=== PATIENT | male | born 1960 | race African-American/Black ===

== ENCOUNTER → 2017-10-05 | Outpatient (CLI) | payer BC ==
--- NOTE | 2017-10-05 15:26 | RADIOLOGY REPORT (SQ) ---
EXAM DESCRIPTION: U/S RETROPERITON (RENAL/AORTA) COMPLETED DATE/TIME: 10/05/2017 2:56 pm REASON FOR STUDY: CKD (N18.9) N18.9 CHRONIC KIDNEY DISEASE, UNSPECIFIED COMPARISON: None. TECHNIQUE: Dynamic and static grayscale images acquired of the kidneys and bladder and recorded on P ACS. Additional selected color Doppler and spectral images recorded. LIMITATIONS: None. FINDINGS: RIGHT KIDNEY: Right nephrectomy in 2005. No mass in the right renal fossa. LEFT KIDNEY: Normal size, 12.4 cm. Normal echogenicity. No solid or suspicious masses. No hydronephr osis. No calcifications. BLADDER: Urinary bladder is normal. OTHER FINDINGS: No other significant finding. IMPRESSION: NORMAL RENAL AND BLADDER ULTRASOUND. TECHNICAL DOCUMENTATION: JOB ID: [id number] [email or web address]- All Rights Reserved Reading location - IP/workstation name: [email or web address]
== END ==
LOC: RAD 14:07
PROVIDERS: ATTEND Family Medicine
DX: N18.9 Chronic kidney disease, unspecified (principal)
CPT/HCPCS: 76770

== ENCOUNTER → 2017-11-17 | Outpatient (CLI) | payer BC ==
[2017-11-18 09:55] LABS: PROSTATE SPECIFIC ANTIGEN 1.3 ng/mL (0.0-4.0); PSA % FREE 29.2 % (.); PSA FREE 0.38 ng/mL
== END ==
LOC: OD 09:59
PROVIDERS: ATTEND Urology
DX: R97.20 Elevated prostate specific antigen [PSA] (principal)
CPT/HCPCS: 36415; 84154

== ENCOUNTER → 2017-12-11 | Outpatient (CLI) | payer BC ==
[2017-12-11 16:51] LABS: APPEARANCE,URINE CLEAR; BILIRUBIN,URINE NEGATIVE (NEGATIVE); COLOR,URINE YELLOW; GLUCOSE, URINE NEGATIVE (NEGATIVE); KETONES,URINE NEGATIVE (NEGATIVE); LEUKOCYTE ESTERASE,URINE NEGATIVE (NEGATIVE); NITRITE,URINE NEGATIVE (NEGATIVE); PROTEIN,URINE NEGATIVE (NEGATIVE); URINE SPECIFIC GRAVITY 1.017; UROBILINOGEN,URINE NEGATIVE mg/dL (<2.0)
[2017-12-11 17:25] LABS: HEMATOCRIT 40.5 % (37.9-51.0); HEMOGLOBIN 13.7 g/dL (13.5-17.0); MEAN CORPUSCULAR HEMOGLOBIN 29.1 pg (27.0-33.4); MEAN CORPUSCULAR HGB CONC 33.9 g/dL (32.0-36.0); MEAN CORPUSCULAR VOLUME 86 fl (80-97); PLATELET COUNT 268 10^3/uL (150-450); RED BLOOD COUNT 4.71 10^6/uL (4.35-5.55); RED CELL DISTRIBUTION WIDTH 13.2 % (11.5-14.0); WHITE BLOOD COUNT 6.7 10^3/uL (4.0-10.5)
[2017-12-11 17:49] LABS: ANION GAP 12 (5-19); BLOOD UREA NITROGEN 15 mg/dL (7-20); CALCIUM 9.6 mg/dL (8.4-10.2); CARBON DIOXIDE 26 mmol/L (22-30); CHLORIDE 105 mmol/L (98-107); GLUCOSE 89 mg/dL (75-110); SODIUM 143.4 mmol/L (137-145)
== END ==
LOC: OD 16:27
PROVIDERS: ATTEND Internal Medicine Nephrology
DX: I12.9 Hypertensive chronic kidney disease with stage 1 through stage 4 chronic kidney disease, or unspecified chronic kidney disease (principal); N18.3 Chronic kidney disease, stage 3 (moderate)
CPT/HCPCS: 36415; 80048; 81001; 85027

== ENCOUNTER → 2018-10-05 | Outpatient (CLI) | payer BC ==
--- NOTE | 2018-10-05 18:28 | RADIOLOGY REPORT (SQ) ---
EXAM DESCRIPTION: CT ABD/PELVIS NO ORAL OR IV COMPLETED DATE/TIME: 10/05/2018 6:03 pm REASON FOR STUDY: R10.84 GENERALIZED ABDOMINAL PAIN R50.9 FEVER, UNSPECIFIED R10.84 GENERALIZED AB DOMINAL PAIN COMPARISON: None. TECHNIQUE: CT scan of the abdomen and pelvis performed without intravenous or oral contrast. Images reviewed with lung, soft tissue, and bone windows. Reconstructed coronal and sagittal MPR images revi ewed. All images stored on PACS. All CT scanners at this facility use dose modulation, iterative reconstruction, and/or weight based d osing when appropriate to reduce radiation dose to as low as reasonably achievable (ALARA). [facility]: Dose Right [facility]: CareDose [facility]: Dose Right [facility]: Teradose 4D [facility]: [employer] RADIATION DOSE: CT Rad equipment meets quality standard of care and radiation dose reduction techniq ues were employed. CTDIvol: 11.7 mGy. DLP: 663 mGy-cm.mGy. LIMITATIONS: None. FINDINGS: LOWER CHEST: No significant findings. No nodules or infiltrates. NON-CONTRASTED LIVER, SPLEEN, ADRENALS: Evaluation limited by lack of IV contrast. No identified sign ificant masses. PANCREAS: No masses. No peripancreatic inflammatory changes. GALLBLADDER: No identified stones by CT criteria. No inflammatory changes to suggest cholecystitis. RIGHT KIDNEY AND URETER: Surgically absent. LEFT KIDNEY AND URETER: No suspicious masses. Assessment limited by lack of IV contrast. No signifi cant calcifications. No hydronephrosis or hydroureter. AORTA AND RETROPERITONEUM: No aneurysm. No retroperitoneal masses or adenopathy. BOWEL AND PERITONEAL CAVITY: No obvious masses or inflammatory changes. No free fluid. APPENDIX: Normal. PELVIS, BLADDER, AND ABDOMINAL WALL:No abnormal masses. No free fluid. Bladder normal. BONES: No significant findings. OTHER: No other significant finding. IMPRESSION: NO SIGNIFICANT OR ACUTE PROCESS IN THE ABDOMEN OR PELVIS. COMMENT: Attempted to call the report to the provider at the number listed above at 1822 hours. Off ice is closed. Quality ID # [id number]: Final reports with documentation of one or more dose reduction techniques (e.g., Au tomated exposure control, adjustment of the mA and/or kV according to patient size, use of iterative reconstruction technique) TECHNICAL DOCUMENTATION: JOB ID: [id number]- All Rights Reserved Reading location - IP/workstation name: [email or web address]
== END ==
LOC: RAD 17:14
PROVIDERS: ATTEND Physician Assistant
DX: R10.84 Generalized abdominal pain (principal)
CPT/HCPCS: 74176

== ENCOUNTER 2019-11-03 16:34 | Emergency (ER) | payer BC ==
[2019-11-03 16:39] VITALS: BP 141/86
[2019-11-03] MEDS ORDERED: DEXAMETHASONE 4 MG TABLET PO ONE (16:47)
[2019-11-03] MEDS ORDERED: HYDROCODONE/ACETAMINOPHEN 5-325 MG TABLET PO ONE (16:48)
[2019-11-03] MEDS ORDERED: CYCLOBENZAPRINE HCL 10 MG TABLET PO ONE (16:48)
--- NOTE | 2019-11-03 16:53 | ER Document Report ---
HPI - HPI Time Seen by Provider: 11/03/19 16:47 Context: CHIEF COMPLAINT: Right lower back injury 4 days ago HPI: 59-year-old male who is reasonably healthy but does have prior history of a right nephrectomy for noncancerous tumor, hypertension, high cholesterol presenting for discomfort in the right lower back with radiation through the gluteus and into the lateral right thigh. Patient states that he had been working out in the yard does not recall a specific injury but when he came back outside from taking a break he began having increasing pain in the right lower back with that radiation into the right lateral thigh. Denies numbness or tingling. Denies perennial pain or numbness. Denies incontinence of urine or bowel denies dysuria. Denies hematuria. Denies penile or testicular pain. Denies abdominal or flank pain. Pain specifically worsens with bending at the waist twisting at the waist or movement ROS: See HPI - all other systems were reviewed and are otherwise negative Constitutional: no fever GI: no vomiting, no diarrhea, no abdominal pain : no dysuria Integumentary: no rash Allergy: no hives Musculoskeletal: no extremity pain or swelling, positive back pain Neurological: no numbness/tingling, no weakness MEDICATIONS: I agree with the patient medications as charted by the RN. ALLERGIES: I agree with the allergies as charted by the RN. PAST MEDICAL HISTORY/PAST SURGICAL HISTORY: Reviewed and agree as charted by RN. SOCIAL HISTORY: Reviewed and agree as charted by RN. FAMILY HISTORY: No significant familial comorbid conditions directly related to patient complaint EXAM: Reviewed vital signs as charted by RN. CONSTITUTIONAL: Alert and oriented and responds appropriately to questions. Well-appearing; well-nourished HEAD: Normocephalic; atraumatic EYES: PERRL; Conjunctivae clear, sclerae non-icteric ENT: normal nose; no rhinorrhea; moist mucous membranes NECK: Supple without meningismus; non-tender; no cervical lymphadenopathy, no masses CARD: RRR; no murmurs, no clicks, no rubs, no gallops; symmetric distal pulses RESP: Normal chest excursion without splinting or tachypnea; breath sounds clear and equal bilaterally; no wheezes, no rhonchi, no rales, pulse oximetry 96% on room air not hypoxic ABD/GI: Normal bowel sounds; non-distended; soft, non-tender, no rebound, no guarding; no palpable organomegaly or masses. BACK: The back appears normal and is non-tender to palpation at this time, there is no CVA tenderness. EXT: Normal ROM in all joints; non-tender to palpation; no cyanosis, no effusions, no edema SKIN: Normal color for age and race; warm; dry; good turgor; no acute lesions noted NEURO: Moves all extremities equally; Motor and sensory function intact. Strength equal 5/5 bilateral lower extremities. Sensation intact and equal bilateral lower extremities. Straight leg raise is negative. No saddle anesthesia on exam. DTRs 2+ intact and equal bilateral lower extremities. PSYCH: The patient's mood and manner are appropriate. Grooming and personal hygiene are appropriate. MDM: 59-year-old male with what appears to be low back injury lumbar region with radiculopathy. No saddle anesthesia on exam neurologically intact low suspicion for cauda equina. He has a prior right nephrectomy cannot use anti-inf lammatories, will place patient on a short course of Decadron for the radiculopathy, short course of pain medicine and muscle relaxers referral to orthopedics with return instructions Past Medical History - Social History Smoking Status: Never Smoker Family History: Reviewed & Not Pertinent - Past Medical History Cardiac Medical History: Reports: Hx Hypertension Denies: Hx Coronary Artery Disease, Hx Heart Attack Pulmonary Medical History: Denies: Hx Asthma, Hx Bronchitis, Hx COPD, Hx Pneumonia Neurological Medical History: Denies: Hx Cerebrovascular Accident, Hx Seizures Musculoskeletal Medical History: Denies Hx Arthritis Past Surgical History: Denies: Hx Pacemaker Vertical Provider Document - INFECTION CONTROL TRAVEL OUTSIDE OF THE [place] IN LAST 30 DAYS: No Course - Vital Signs Vital signs: Temp Pulse Resp BP Pulse Ox 98.4 F 85 18 141/86 H 99 11/03/19 16:38 11/03/19 16:38 11/03/19 16:38 11/03/19 16:38 11/03/19 16:38 Discharge - Discharge Clinical Impression: Lumbar back pain with radiculopathy affecting right lower extremity Condition: Stable Disposition: HOME, SELF-CARE Additional Instructions: Take the medications as prescribed. Do not drive if taking muscle relaxers or narcotics also watch for balance issues. Follow-up closely with orthopedics or your primary care provider for reevaluation of symptoms call for appointment. If you develop incontinence of urine or weakness in the right or left legs return for reevaluation as discussed Prescriptions: Dexamethasone [Decadron 4 Mg Tablet] 4 mg PO QAM #7 tablet Cyclobenzaprine HCl [Flexeril 10 mg Tablet] 10 mg PO TIDP PRN #15 tab PRN Reason: Hydrocodone/Acetaminophen [[place] 5-325 mg Tablet] 1 tab PO Q4 PRN #15 tablet PRN Reason: Referrals: PHOEBE FRANKLIN PA-C [Primary Care Provider] - Follow up as needed LALITA GONCALVES DO [ACTIVE STAFF] - Follow up as needed
== END 2019-11-03 17:02 | disposition home or self-care (01) ==
LOC: ER 16:34
DX: M54.16 Radiculopathy, lumbar region (principal); I10 Essential (primary) hypertension; Z90.5 Acquired absence of kidney
CPT/HCPCS: 99283; J8540

== ENCOUNTER → 2020-03-21 | Outpatient (CLI) | payer BC ==
--- NOTE | 2020-03-21 15:09 | RADIOLOGY REPORT (SQ) ---
EXAM DESCRIPTION: MRI LT UPPER JOINT WITHOUT IMAGES COMPLETED DATE/TIME: 03/21/2020 11:03 am REASON FOR STUDY: (M25.512)PAIN IN LEFT SHOULDER M25.512 PAIN IN LEFT SHOULDER COMPARISON: None. TECHNIQUE: Left shoulder images acquired and stored on PACS. Multiplanar imaging to include fat sens itive sequences such as T1, water sensitive sequences such as FST2/STIR, cartilage sensitive sequence s such as FSPD/gradient-echo sequences. LIMITATIONS: None. FINDINGS: BONE MARROW AND CORTEX: No worrisome bone lesions or marrow replacement. No occult fractur es. JOINT OR BURSAL EFFUSION: Small amount of fluid in the subacromial bursa. GLENO-HUMERAL ARTICULATION: Intact. Mild arthropathy. ACROMION AND AC JOINT: Type 2 acromion. Moderate AC joint arthropathy. ROTATOR CUFF AND INTERVAL: Musculature is symmetric. Full-thickness tear of the supraspinatus with a gap of about 3 cm. Tendinosis infraspinatus and subscapularis. No rotator interval tear. No rotator interval thickening to suggest adhesive capsulitis. LABRUM AND BICEPS LABRAL COMPLEX: No labral tear identified. Increased signal in the biceps anchor . Distal biceps intact. REMAINDER OF LABRUM AND IGHL : Intact. PERIARTICULAR AND ADJACENT SOFT TISSUES: No masses or abnormal nodes. OTHER: No other significant finding. IMPRESSION: 1. Full-thickness tear of the supraspinatus. 2. AC and glenohumeral joint arthropathy. 3. Biceps tendinosis. TECHNICAL DOCUMENTATION: JOB ID: [id number] [email or web address]- All Rights Reserved Reading location - IP/workstation name: [email or web address]
== END ==
LOC: RAD 10:10
PROVIDERS: ATTEND Physician Assistant
DX: M75.122 Complete rotator cuff tear or rupture of left shoulder, not specified as traumatic (principal); M12.812 Other specific arthropathies, not elsewhere classified, left shoulder

== ENCOUNTER → 2020-05-24 | Outpatient (CLI) | payer BC ==
--- NOTE | 2020-05-24 13:57 | RADIOLOGY REPORT (SQ) ---
EXAM DESCRIPTION: L SPINE WHOLE IMAGES COMPLETED DATE/TIME: 05/24/2020 1:32 pm REASON FOR STUDY: M54.16 RADICULOPATHY, LUMBAR REGION M54.16 RADICULOPATHY, LUMBAR REGION COMPARISON: None. NUMBER OF VIEWS: Five views including obliques. TECHNIQUE: AP, lateral, oblique, and sacral radiographic images acquired of the lumbar spine. LIMITATIONS: None. FINDINGS: MINERALIZATION: Normal. SEGMENTATION: Normal. No transitional anatomy. ALIGNMENT: Normal. VERTEBRAE: Maintained height. No fracture or worrisome bone lesion. DISCS: There is minimal disc narrowing at L4-5. POSTERIOR ELEMENTS: Pedicles and facets are intact. No pars defect or posterior arch defects. HARDWARE: None in the spine. PARASPINAL SOFT TISSUES: Normal. PELVIS: Intact as visualized. No fractures or worrisome bone lesions. SI joints intact. OTHER: No other significant finding. IMPRESSION: Minimal disc narrowing at L4-5. No acute findings. TECHNICAL DOCUMENTATION: JOB ID: [id number] [email or web address]- All Rights Reserved Reading location - IP/workstation name: [email or web address]
--- NOTE | 2020-05-24 13:59 | RADIOLOGY REPORT (SQ) ---
EXAM DESCRIPTION: HIP RIGHT AP/LATERAL IMAGES COMPLETED DATE/TIME: 05/24/2020 1:32 pm REASON FOR STUDY: M54.16 RADICULOPATHY, LUMBAR REGION M54.16 RADICULOPATHY, LUMBAR REGION COMPARISON: None. NUMBER OF VIEWS: Two views. TECHNIQUE: AP pelvis and additional frog legview of the right hip. LIMITATIONS: None. FINDINGS: MINERALIZATION: Normal. RIGHT HIP: No fracture or dislocation. No worrisome bone lesions. LEFT HIP: No fracture or dislocation. No worrisome bone lesions. Limited views. PUBIS AND ISCHIUM: No fracture. PELVIS: No fracture. SACRUM: No fracture or dislocation. No worrisome bone lesions. LOWER LUMBAR SPINE: No fracture or dislocation. No worrisome bone lesions. No significant disc disea se. SOFT TISSUES: No findings. OTHER: No other significant finding. IMPRESSION: NEGATIVE STUDY OF THE RIGHT HIP. NO RADIOGRAPHIC EVIDENCE OF ACUTE INJURY. TECHNICAL DOCUMENTATION: JOB ID: [id number] 2010 [email or web address]- All Rights Reserved Reading location - IP/workstation name: [email or web address]
== END ==
LOC: RAD 13:04
PROVIDERS: ATTEND Family Medicine
DX: M54.16 Radiculopathy, lumbar region (principal)
CPT/HCPCS: 72110

== ENCOUNTER → 2020-07-06 | Outpatient (CLI) | payer BC ==
[2020-07-06 12:49] LABS: ABSOLUTE EOSINOPHILS # (AUTO) 0.1 10^3/uL (0.0-0.6); ABSOLUTE LYMPHOCYTES (AUTO) 1.8 10^3/uL (0.5-4.7); ABSOLUTE MONOCYTES (AUTO) 0.5 10^3/uL (0.1-1.4); ABSOLUTE NEUT (AUTO) 2.7 10^3/uL (1.7-8.2); BASOPHILS % (AUTO) 0.5 % (0-2); EOSINOPHILS % (AUTO) 2.1 % (0-6); HEMATOCRIT 42.9 % (37.9-51.0); HEMOGLOBIN 14.5 g/dL (13.5-17.0); LYMPHOCYTES % (AUTO) 35.2 % (13-45); MEAN CORPUSCULAR HEMOGLOBIN 28.7 pg (27.0-33.4); MEAN CORPUSCULAR HGB CONC 33.8 g/dL (32.0-36.0); MEAN CORPUSCULAR VOLUME 85 fl (80-97); MONOCYTES % (AUTO) 10.1 % (3-13); PLATELET COUNT 272 10^3/uL (150-450); RED BLOOD COUNT 5.05 10^6/uL (4.35-5.55); RED CELL DISTRIBUTION WIDTH 13.6 % (11.5-14.0); SEGMENTED NEUTROPHILS % (AUTO) 52.1 % (42-78); TOTAL CELLS COUNTED % (AUTO) 100 %; WHITE BLOOD COUNT 5.1 10^3/uL (4.0-10.5)
[2020-07-06 12:53] LABS: APPEARANCE,URINE SLIGHTLY-CLOUDY; BILIRUBIN,URINE NEGATIVE (NEGATIVE); COLOR,URINE YELLOW; GLUCOSE, URINE NEGATIVE (NEGATIVE); KETONES,URINE NEGATIVE (NEGATIVE); LEUKOCYTE ESTERASE,URINE NEGATIVE (NEGATIVE); NITRITE,URINE NEGATIVE (NEGATIVE); PROTEIN,URINE NEGATIVE (NEGATIVE); UROBILINOGEN,URINE NEGATIVE mg/dL (<2.0)
[2020-07-06 13:13] LABS: ANION GAP 6 (5-19); BLOOD UREA NITROGEN 13 mg/dL (7-20); CALCIUM 9.7 mg/dL (8.4-10.2); CARBON DIOXIDE 31 mmol/L (22-30); CHLORIDE 105 mmol/L (98-107); GLUCOSE 103 mg/dL (75-110); POTASSIUM 4.5 mmol/L (3.6-5.0)
== END ==
LOC: OD 11:19
PROVIDERS: ATTEND Internal Medicine Nephrology
DX: I12.9 Hypertensive chronic kidney disease with stage 1 through stage 4 chronic kidney disease, or unspecified chronic kidney disease (principal); N18.30 Chronic kidney disease, stage 3 unspecified
CPT/HCPCS: 36415; 80048; 81001; 85025